=== PATIENT | male | born 1950 | race Caucasian/White ===

== ENCOUNTER 2023-08-30 11:28 | Emergency (ER) | payer BC ==
[~2023-08-30] VITALS: Ht 167.6 cm; Wt 75.0 kg
[2023-08-30 11:44] VITALS: TEMP 98.1
[2023-08-30 12:05] LABS: BASOPHILS # (AUTO) 0.1 X10'3 (0-0.2); BASOPHILS % (AUTO) 1.2 % (0-1); EOSINOPHILS # (AUTO) 0.1 X10'3 (0-0.9); HEMATOCRIT 39.9 % (42.0-52.0); HEMOGLOBIN 13.4 g/dl (14.0-17.9); LYMPHOCYTES # (AUTO) 0.9 X10'3 (1.1-4.8); LYMPHOCYTES % (AUTO) 16.9 % (21-51); MEAN CORPUSCULAR HEMOGLOBIN 29.2 PG (27.0-31.0); MEAN CORPUSCULAR HGB CONC 33.5 g/dL (33.0-36.5); MEAN PLATELET VOLUME 7.9 FL (7.4-10.4); MONOCYTES # (AUTO) 0.6 X10'3 (0-0.9); MONOCYTES % (AUTO) 10.8 % (2-12); NEUTROPHILS # (AUTO) 3.6 X10'3 (1.8-7.7); NEUTROPHILS % (AUTO) 70.1 % (42-75); PLATELET COUNT 228 X10'3 (140-440); RED BLOOD COUNT 4.59 X10'6 (4.70-6.10); WHITE BLOOD COUNT 5.1 X10'3 (4.5-11.0)
[2023-08-30] MEDS ORDERED: iohexol 350MG/ML 100ml bottle IV ONE (12:16)
[2023-08-30 12:24] LABS: ALANINE AMINOTRANSFERASE 22 U/L (12-78); ALBUMIN 3.1 G/DL (3.4-5.0); ALBUMIN/GLOBULIN RATIO 0.9 (1.1-1.5); ALKALINE PHOSPHATASE 75 IU/L (46-116); ANION GAP 7 (8-16); ASPARTATE AMINO TRANSFERASE 19 U/L (10-37); BILIRUBIN,TOTAL 0.4 MG/DL (0.1-1.0); BLOOD UREA NITROGEN 17 MG/DL (7-18); BUN/CREATININE RATIO 16.2 (10.0-20.0); CALCIUM 8.6 MG/DL (8.5-10.1); CHLORIDE 107 MMOL/L (99-107); CREATININE 1.05 MG/DL (0.60-1.10); GLUCOSE 100 MG/DL (70-104); POTASSIUM 3.4 MMOL/L (3.5-5.1); SODIUM 141 MMOL/L (135-145); TOTAL CARBON DIOXIDE 26.9 MMOL/L (24-32); TOTAL PROTEIN 6.5 G/DL (6.4-8.2); eCRCL 55 ML/MIN; eGFR 69 ML/MIN
[2023-08-30 12:33] LABS: PRO BRAIN NATRIURETIC PEPTIDE 434 PG/ML (0-450)
[2023-08-30 12:36] LABS: APTT 29 SECONDS (22-32); PROTHROMBIN TIME 10.3 SECONDS (9.0-12.0)
--- NOTE | 2023-08-30 13:16 | NUR ---
Bedside general assessment performed directly after patient dropped off from EMS and triage complete. Assessment documented later due to prioritizing multiple bedside interventions.
--- NOTE | 2023-08-30 13:55 | NUR ---
PT TO JENNIFER KYLE RN STROKE NURSE TRANSPORTING WITH [facility].
[2023-08-30 17:30] VITALS: BP 150/96; PULSE 65; RESP 18; O2SAT 96
== END 2023-08-30 13:52 | disposition short-term general hospital (02) ==
LOC: ER 11:29
DX: I61.8 Other nontraumatic intracerebral hemorrhage (principal); I16.9 Hypertensive crisis, unspecified; R55 Syncope and collapse
CPT/HCPCS: 36415; 70450; 70496; 70498; 71045; 80053; 83880; 84484; 85025; 85610; 85730; 93005; 99285; J3490; Q9967; C1758